=== PATIENT | female | born 1985 | race Two or more races ===

== ENCOUNTER 2017-02-04 10:11 | Emergency (ER) | payer OTHER, MEDICAID ==
[~2017-02-04] VITALS: Ht 157.5 cm; Wt 59.5 kg
[2017-02-04 13:14] VITALS: BP 120/86
== END 2017-02-04 13:14 | disposition home or self-care (01) ==
LOC: ED 10:11
DX: R10.12 Left upper quadrant pain (principal)
CPT/HCPCS: Q0162

== ENCOUNTER → 2017-02-19 | Outpatient (CLI) | payer OTHER, MEDICAID ==
[2017-02-19 08:20] LABS: BASOPHIL % 0.4 % (0-2); PLATELET COUNT 231 x10^3mcL (130-400); RED CELL DISTRIBUTION WIDTH 13.5 % (11.5-14.5)
[2017-02-19 08:34] LABS: ALBUMIN 4.3 g/dL (3.4-5.0); ALKALINE PHOSPHATASE 61 U/L (46-116); ALT/SGPT 27 U/L (14-59); AST/SGOT 11 U/L (15-37); BILIRUBIN TOTAL 0.3 mg/dL (0.20-1.00); CALCIUM 9.4 mg/dL (8.5-10.1); CARBON DIOXIDE 27.8 mmol/L (21-32); CHLORIDE SERUM 102 mmol/L (98-107); CREATININE SERUM 0.8 mg/dL (0.6-1.0); GFR1 > 60 mL/min; GLUCOSE SERUM 104 mg/dL (74-106); POTASSIUM SERUM 4.3 mmol/L (3.5-5.1); SODIUM SERUM 139 mmol/L (136-145); TRIGLYCERIDES 75 mg/dL (<150)
[2017-02-19 08:38] LABS: CHOLESTEROL 230 mg/dL (<200); CHOLESTEROL/HDL RATIO 3.1; HDL CHOLESTEROL 74 mg/dL (40-60)
[2017-02-19 08:53] LABS: T3 TOTAL 1.02 ng/mL
[2017-02-19 09:59] LABS: FREE T4 0.97 ng/dL (0.76-1.46); FREE THYROXINE INDEX 2.7 ug/dL (1.4-4.5)
== END | disposition home or self-care (01) ==
LOC: LB 07:48
PROVIDERS: Family Medicine
DX: Z00.00 Encounter for general adult medical examination without abnormal findings (principal)
CPT/HCPCS: 84439

== ENCOUNTER → 2017-04-12 | Outpatient (CLI) | payer OTHER, MEDICAID | END | disposition home or self-care (01) | LOC: LB 11:34 | DX: K21.9 Gastro-esophageal reflux disease without esophagitis (principal) ==

== ENCOUNTER → 2017-07-28 | Outpatient (CLI) | payer OTHER, MEDICAID | END | disposition home or self-care (01) | LOC: RD 17:21 | DX: R06.02 Shortness of breath (principal) ==

== ENCOUNTER → 2017-10-21 | Outpatient (CLI) | payer OTHER, MEDICAID ==
[2017-10-21 17:00] LABS: ALBUMIN 4.2 g/dL (3.4-5.0); ALKALINE PHOSPHATASE 63 U/L (46-116); ALT/SGPT 41 U/L (14-59); AMYLASE 86 U/L (25-115); AST/SGOT 28 U/L (15-37); BILIRUBIN TOTAL 0.2 mg/dL (0.20-1.00); CALCIUM 9.2 mg/dL (8.5-10.1); CARBON DIOXIDE 29.2 mmol/L (21-32); CHLORIDE SERUM 101 mmol/L (98-107); CREATININE SERUM 0.7 mg/dL (0.6-1.0); GFR1 > 60 mL/min; GLUCOSE SERUM 93 mg/dL (74-106); LIPASE 213 IU/L (73-393); POTASSIUM SERUM 3.9 mmol/L (3.5-5.1); SODIUM SERUM 138 mmol/L (136-145); TOTAL PROTEIN, SERUM 7.6 g/dL (6.4-8.2)
== END | disposition home or self-care (01) ==
LOC: RD 15:55
PROVIDERS: Family Medicine
PROC: BW40ZZZ Ultrasonography of Abdomen (ICD-10-PCS; principal; 2017-10-21)
DX: R10.11 Right upper quadrant pain (principal); R31.9 Hematuria, unspecified